=== PATIENT | female | born 1975 | race Caucasian/White ===

== ENCOUNTER 2024-01-09 08:56 | Day surgery (SDC) | payer MEDICAID ==
[~2024-01-09] VITALS: Ht 152.4 cm; Wt 84.8 kg
[2024-01-09] MEDS ORDERED: fentaNYL citrate 0.05 MG/ML VIAL ONE (09:55)
[2024-01-09] MEDS ORDERED: LIDOCAINE 2% 1000 MG/50 ML VIAL INJ ONE (10:21)
[2024-01-09] MEDS ORDERED: ACETAMINOPHEN EXTRA STRENGTH 500 MG TAB PO PRN (11:30)
[2024-01-09] MEDS ORDERED: ACETAMINOPHEN EXTRA STRENGTH 500 MG TAB ONE (11:35)
[2024-01-09] MEDS: ACETAMINOPHEN EXTRA STRENGTH 500 MG TAB PO ONE (11:39)
== END 2024-01-09 12:02 | disposition home or self-care (01) ==
LOC: MDS 08:56 → MMU 08:56 → MDS 12:02
PROVIDERS: ATTEND Internal Medicine Gastroenterology
DX: R94.5 Abnormal results of liver function studies (principal); R74.01 Elevation of levels of liver transaminase levels; E78.5 Hyperlipidemia, unspecified; E03.9 Hypothyroidism, unspecified; Z79.899 Other long term (current) drug therapy; Z98.890 Other specified postprocedural states
CPT/HCPCS: 47000; 76942; J2001; Q0092; J3010